=== PATIENT | female | born 1955 | race Caucasian/White ===

== ENCOUNTER → 2016-09-26 12:25 | Outpatient (CLI) | payer OTHER ==
[2010-11-15 06:19] VITALS: BMI 21.5
== END | disposition home or self-care (01) ==
LOC: D.CT 09-23 11:00
DX: I89.0 Lymphedema, not elsewhere classified (principal)

== ENCOUNTER → 2016-10-24 18:28 | Outpatient (CLI) | payer OTHER ==
[2010-11-15 06:19] VITALS: BMI 21.5
== END | disposition home or self-care (01) ==
LOC: D.MAMMO 10-20 13:00
DX: Z12.31 Encounter for screening mammogram for malignant neoplasm of breast (principal)

== ENCOUNTER → 2017-08-29 19:52 | Outpatient (CLI) | payer OTHER ==
[2010-11-15 06:19] VITALS: BMI 21.5
== END | disposition home or self-care (01) ==
LOC: D.MAMMO 16:00
DX: Z12.31 Encounter for screening mammogram for malignant neoplasm of breast (principal)

== ENCOUNTER 2018-09-03 08:00 | Outpatient (CLI) | payer OTHER ==
[2010-11-15 06:19] VITALS: BMI 21.5
== END 2018-09-03 09:00 | disposition home or self-care (01) ==
LOC: D.MAMMO 08:00
DX: Z12.31 Encounter for screening mammogram for malignant neoplasm of breast (principal)

== ENCOUNTER 2019-08-27 19:00 | Outpatient (CLI) | payer MEDICARE ==
[2010-11-15 06:19] VITALS: BMI 21.5
== END 2019-08-27 23:59 | disposition home or self-care (01) ==
LOC: D.MAMMO 19:00
PROVIDERS: ATTEND Family Medicine
DX: Z12.31 Encounter for screening mammogram for malignant neoplasm of breast (principal)

== ENCOUNTER 2020-10-27 15:30 | Outpatient (CLI) | payer MEDICARE ==
[2010-11-15 06:19] VITALS: BMI 21.5
== END 2020-10-27 23:59 | disposition home or self-care (01) ==
LOC: D.MAMMO 15:30
PROVIDERS: ATTEND Family Medicine
DX: Z12.31 Encounter for screening mammogram for malignant neoplasm of breast (principal)